=== PATIENT | male | born 1985 | race African-American/Black ===

== ENCOUNTER 2017-02-27 15:25 | Emergency (ER) | payer MEDICAID ==
[~2017-02-27] VITALS: Ht 175.3 cm; Wt 77.1 kg
[~2017-02-27 15:25] MED LIST: BACTROBAN CR1 APPLIC TOPIC; CIPRO500 MG PO; CIPROFLOXACIN500 M2 ORAL; DIAZEPAM10 MG ORAL; FOLEY CATHETER1 EAC1; NKM; NORCO 5-325 TA1 EACH ORAL; VALIUM5 MG PO
[2017-02-27 15:43] VITALS: BP 112/70
[2017-02-27] MEDS ORDERED: NKM (15:49)
--- NOTE | 2017-02-27 15:57 | Emergency Room Report ---
History of Present Illness General Chief Complaint: Abdominal Pain Source: Patient, Medical Record Present Illness HPI 31-year-old male presents emergency department complaining of cloudy malodorous urine x3 days. Patient states he is paraplegic and has to self catheterize infrequently will have urinary tract infections. Patient reports mild abdominal discomfort as though he has a full bladder however when he attempted to self catheterize he does not always have moderate amounts of urine production. Patient denies hematuria denies dysuria. Patient states that when he usually has a urinary tract infection and presents with cloudy urine and malodorous. He denies fevers chills low back pain, nausea, vomiting. Denies CP , Palpitations, LOC, AMS, dizziness, Changes in Vision, Sensation, paresthesias , or a sudden severe headache. Allergies: Coded Allergies: No Known Allergies (Unverified , 05/19/13) Patient History Past Medical History: see triage record Past Surgical History: none Pertinent Family History: none Immunizations: UTD Reviewed Nursing Documentation: PMH: Agreed, PSxH: Agreed Nursing Documentation-PMH Hx Neurological Problems: Yes - paraplegia, pressure ulcers hip bilaterally Review of Systems All Other Systems: negative except mentioned in HPI Physical Exam Vital Signs Date Time Temp Pulse Resp B/P Pulse Ox O2 Delivery O2 Flow Rate FiO2 02/27/ 15:43 98.2 89 16 112/70 99 Room Air Sp02 EP Interpretation: reviewed, normal General Appearance: no apparent distress, alert, GCS 15, non-toxic Head: normocephalic, atraumatic Eyes: bilateral eye PERRL, bilateral eye normal inspection ENT: hearing grossly normal, normal pharynx, no angioedema, normal voice Neck: full range of motion, supple/symm/no masses Respiratory: chest non-tender, lungs clear, normal breath sounds, speaking full sentences Cardiovascular #1: regular rate, rhythm, no edema Gastrointestinal: normal bowel sounds, non tender, soft, no guarding, no rebound Rectal: deferred Genitourinary: normal inspection, no CVA tenderness Musculoskeletal: back normal, normal range of motion, non-tender, other - Pt in wheelchair, parapelegic. Neurologic: alert, oriented x3, responsive, sensory intact, speech normal Psychiatric: judgement/insight normal, memory normal, mood/affect normal Skin: normal color, no rash, warm/dry, well hydrated Medical Decision Making PA Attestation Dr. David is my supervising Physician whom patient management has been discussed with. Diagnostic Impression: Primary Impression: UTI (lower urinary tract infection) ER Course 31-year-old male presents emergency department complaining of cloudy malodorous urine x3 days. Patient states he is paraplegic and has to self catheterize infrequently will have urinary tract infections. Patient reports mild abdominal discomfort as though he has a full bladder however when he attempted to self catheterize he does not always have moderate amounts of urine production. Patient denies hematuria denies dysuria. Patient states that when he usually has a urinary tract infection and presents with cloudy urine and malodorous. He denies fevers chills low back pain, nausea, vomiting. Ddx considered but are not limited to UTi , Pyelo, STI, Stone, Cystitis Vital signs: are WNL, pt. is afebrile H&PE are most consistent with UTI ORDERS: - UA labs are attached: NItrite positive, bacteria, wbc's and leuks consistent with UTI. ED INTERVENTIONS: -200mg Pyriudium PO DISCHARGE: At this time pt. is stable for d/c to home. Will provide printed patient care instructions, and any necessary prescriptions. Care plan and follow up instructions have been discussed with the patient prior to discharge. Labs Test 02/27/17 16:00 Urine Color Pale yellow Urine Appearance Clear Urine pH 7 (4.5-8.0) Urine Specific [place] 1.010 (1.005-1.035) Urine Protein 1+ (NEGATIVE) Urine Glucose (UA) Negative (NEGATIVE) Urine Ketones Negative (NEGATIVE) Urine Occult Blood 1+ (NEGATIVE) Urine Nitrite Positive (NEGATIVE) Urine Bilirubin Negative (NEGATIVE) Urine Urobilinogen Normal MG/DL (0.0-1.0) Urine Leukocyte Esterase 2+ (NEGATIVE) Urine RBC 2-4 /HPF (0 - 0) Urine WBC 5-10 /HPF (0 - 0) Urine Squamous Epithelial Cells None /LPF (NONE/OCC) Urine Bacteria Moderate /HPF (NONE) Last Vital Signs Date Time Temp Pulse Resp B/P Pulse Ox O2 Delivery O2 Flow Rate FiO2 02/27/17 15:43 98.2 89 16 112/70 99 Room Air Disposition: HOME, SELF-CARE Condition: Stable Scripts Phenazopyridine Hcl* (PYRIDIUM*) 100 Mg Tablet 100 MG ORAL THREE TIMES A DAY for 4 Days, #15 TAB Prov: Nesha Kim 02/27/17 Nitrofurantoin Monohyd/M-Cryst* (MACROBID 100 MG*) 100 Mg Capsule 100 MG ORAL EVERY 12 HOURS for 5 Days, #10 CAP Prov: Nesha Kim 02/27/17 Patient Instructions: Urinary Tract Infection, [id number] Additional Instructions: Take medications as directed. Follow up with PCP in 3-5 days Return sooner to ED if new symptoms occur, or current symptoms become worse. Pyridium will cause your urine to change color (Red/[place]), this is a normal side effect of the medication. - Please note that this Emergency Department Report was dictated using [employer] frame builder technology software, occasionally this can lead to erroneous entry secondary to interpretation by the dictation equipment. Nesha Kim February 27, 2017 15:57
[2017-02-27 16:38] LABS: APPEARANCE,URINE CLEAR; KETONES,URINE NEGATIVE (NEGATIVE); LEUKOCYTE ESTERASE ,URINE 2+ (NEGATIVE); NITRITE,URINE POSITIVE (NEGATIVE); PH,URINE 7 (4.5-8.0); PROTEIN,URINE 1+ (NEGATIVE); UROBILINOGEN,URINE NORMAL MG/DL (0.0-1.0)
[2017-02-27 16:44] LABS: BACTERIA,URINE MODERATE /HPF
[2017-02-27] MEDS ORDERED: PHENAZOPYRIDIN100 MG ORAL (16:51)
[2017-02-27] MEDS ORDERED: NITROFURANTOIN100 M2 ORAL (16:51)
[2017-02-27] MEDS ORDERED: Phenazopyridine 200mg tab ORAL ONE (17:00)
[2017-02-27 17:34] VITALS: BP 108/63
== END 2017-02-27 17:37 | disposition home or self-care (01) ==
LOC: EMR 16:17
DX: N39.0 Urinary tract infection, site not specified (principal); G82.20 Paraplegia, unspecified
CPT/HCPCS: 81003; 87086; 87181; 99284

== ENCOUNTER 2017-09-01 21:23 | Emergency (ER) | payer MEDICAID ==
[~2017-09-01] VITALS: Ht 172.7 cm; Wt 79.4 kg
[~2017-09-01 21:23] MED LIST changes: +NITROFURANTOIN100 M2 ORAL; +PHENAZOPYRIDIN100 MG ORAL
[2017-09-01 22:00] VITALS: BP 128/74
[2017-09-01] MEDS ORDERED: Lidocaine 1% MPF 10mg/ml 5ml INJ ONE (22:00)
[2017-09-01] MEDS ORDERED: cefTRIAXone 1 GM in NS 55 ML IVPB ONE (22:00)
[2017-09-01] MEDS ORDERED: LEVAQUIN500 MG ORAL (22:26)
--- NOTE | 2017-09-01 22:27 | Emergency Room Report ---
History of Present Illness General Chief Complaint: Abdominal Pain Source: Patient Present Illness HPI This is a 31-year-old male who is a paraplegic. He has to self cath himself every few hours. He presents with chief complaint of possible urinary tract infection. He has dark cloudy urine and lower back pain. This is similar to his previous presentation. No nausea no vomiting. No fever or chills Allergies: Coded Allergies: No Known Allergies (Unverified , 05/19/13) Patient History Past Medical History: see triage record, old chart reviewed Past Surgical History: other Pertinent Family History: none Social History: Denies: smoking Immunizations: other Reviewed Nursing Documentation: PMH: Agreed, PSxH: Agreed Nursing Documentation-PMH Past Medical History: No History, Except For Hx Neurological Problems: Yes - paraplegia, pressure ulcers hip bilaterally Review of Systems Eye: Denies: eye pain, blurred vision ENT: Denies: ear pain, nose congestion, throat swelling Respiratory: Denies: cough, shortness of breath Cardiovascular: Denies: chest pain, palpitations Gastrointestinal: Denies: abdominal pain, diarrhea, nausea, vomiting Musculoskeletal: Denies: back pain, joint pain Skin: Denies: rash Neurological: Denies: headache, numbness Endocrine: Denies: increased thirst, increased urine Hematologic/Lymphatic: Denies: easy bruising All Other Systems: negative except mentioned in HPI Physical Exam Vital Signs Date Time Temp Pulse Resp B/P (MAP) Pulse Ox O2 Delivery O2 Flow Rate FiO2 09/01/17 21:27 97.7 92 16 133/70 99 Room Air vitals normal Sp02 EP Interpretation: reviewed, normal General Appearance: well appearing, no apparent distress, alert Head: normocephalic, atraumatic Eyes: bilateral eye PERRL, bilateral eye EOMI ENT: hearing grossly normal, normal pharynx Neck: full range of motion, supple, no meningismus Respiratory: chest non-tender, lungs clear, normal breath sounds Cardiovascular #1: regular rate, rhythm, no murmur Gastrointestinal: normal bowel sounds, non tender, no mass, no organomegaly, no bruit, non-distended Musculoskeletal: back normal Neurologic: alert, oriented x3, responsive, other - Paraplegic Psychiatric: mood/affect normal Skin: warm/dry Medical Decision Making Diagnostic Impression: Primary Impression: UTI (lower urinary tract infection) ER Course Patient with symptoms consistent with UTI. I gave him Rocephin here. He grew out Escherichia coli and Klebsiella in the past. There were resistant to Bactrim but sensitive to everything else. Patient looks well. no e/o sepsis or pyelo. Last Vital Signs Date Time Temp Pulse Resp B/P (MAP) Pulse Ox O2 Delivery O2 Flow Rate FiO2 09/01/17 21:27 97.7 92 16 133/70 99 Room Air Status: improved Disposition: HOME, SELF-CARE Condition: Stable Scripts Levofloxacin* (LEVAQUIN*) 500 Mg Tablet 500 MG ORAL DAILY, #7 TAB Prov: JASEN CHOWDHURY M.D. 09/01/17 Additional Instructions: Followup with your Dr. in 7 days. Return if worse. JASEN CHOWDHURY M.D. Sep 01, 2017 22:27
[2017-09-01 22:45] VITALS: BP 128/74
== END 2017-09-01 23:25 | disposition home or self-care (01) ==
LOC: EMR 23:18
DX: N39.0 Urinary tract infection, site not specified (principal); G82.20 Paraplegia, unspecified
CPT/HCPCS: 87086; 87181; 96361; 96374; 99284; J0696